=== PATIENT | male | born 1985 | race Two or more races ===

== ENCOUNTER 2017-01-24 19:53 | Emergency (ER) | payer MEDICAID, MEDICARE ==
[~2017-01-24] VITALS: Ht 182.9 cm; Wt 150.0 kg
[2017-01-24 21:09] VITALS: BP 165/88
== END 2017-01-25 07:34 | disposition left against medical advice (07) ==
LOC: ER 19:53
DX: K08.89 Other specified disorders of teeth and supporting structures (principal); F17.200 Nicotine dependence, unspecified, uncomplicated; Z53.21 Procedure and treatment not carried out due to patient leaving prior to being seen by health care provider